=== PATIENT | female | born 1990 | race African-American/Black ===

== ENCOUNTER 2017-06-08 18:39 | Emergency (ER) | payer BC ==
[~2017-06-08] VITALS: Ht 162.6 cm; Wt 85.0 kg
[2017-06-08] MEDS ORDERED: SODIUM CHLORIDE 0.9% 1,000 ML IV ONE (23:08)
[2017-06-08] MEDS ORDERED: ONDANSETRON HCL 4MG/2ML VIAL IV STA (23:08)
[2017-06-08] MEDS ORDERED: KETOROLAC 30MG/ML VIAL IV STA (23:08)
[2017-06-08 23:41] LABS: BASOPHILS % 0.2 % (0.0-2.0); EOSINOPHILS % 0.1 % (0.0-5.0); HEMATOCRIT. 33.8 % (36.0-48.0); HEMOGLOBIN. 10.6 g/dL (12.0-16.0); MEAN CORPUSCULAR HEMOGLOBIN 20.6 pg (28.0-32.0); MEAN CORPUSCULAR VOLUME 65.6 fL (81.0-99.0); MEAN PLATELET VOLUME 7.6 fl (7.4-10.4); MONOCYTES % 6.5 % (2.0-8.0); NEUTROPHILS % 63.2 % (40.0-76.0); PLATELET 371 x1000/uL (130-400); RED BLOOD CELL COUNT 5.15 mill/uL (4.2-5.4); RED CELL DISTRIBUTION WIDTH 18.5 % (11.6-14.6)
[2017-06-08 23:44] LABS: CHLORIDE 101 mEq/L (98-107)
[2017-06-08 23:46] LABS: INR 1.1; PROTHROMBIN TIME 11.1 sec
[2017-06-08 23:52] LABS: CARBON DIOXIDE 27 mEq/L (21-32)
[2017-06-08 23:55] LABS: PLATELET ESTIMATE NORMAL
[2017-06-09 00:01] LABS: CLARITY URINE CLOUDY (CLEAR); COLOR URINE YELLOW (YELLOW); GLUCOSE URINE NEGATIVE (NEGATIVE); KETONES URINE NEGATIVE (NEGATIVE); LEUKOCYTE ESTERASE URINE NEGATIVE (NEGATIVE); NITRITE URINE NEGATIVE (NEGATIVE); OCCULT BLOOD URINE 1+ (NEGATIVE); PROTEIN URINE NEGATIVE (NEGATIVE); SPECIFIC GRAVITY URINE 1.019 (1.005-1.030); UROBILINOGEN URINE 0.2 E.U./dL (0.2-1.0)
[2017-06-09 00:35] LABS: HCG SCREEN NEGATIVE
[2017-06-09 01:00] VITALS: BP 124/64
== END 2017-06-09 01:00 | disposition home or self-care (01) ==
LOC: ER 22:39
DX: R51 Headache (principal); R11.2 Nausea with vomiting, unspecified; J45.909 Unspecified asthma, uncomplicated; R07.9 Chest pain, unspecified
CPT/HCPCS: 36415; 80053; 81001; 84703; 85025; 85610; 96361; 96374; 96375; 99284; J1885; J2405; J7030; Z7610; 81003